=== PATIENT | female | born 1950 | race Caucasian/White ===

== ENCOUNTER 2024-03-20 12:25 | Emergency (ER) | payer MEDICARE ==
[2024-03-20] MEDS ORDERED: Ibuprofen 200 MG TAB ONE (13:37)
[2024-03-20] MEDS ORDERED: HYDROcodone/Acetaminophen 5/325 mg Tablet ONE (13:37)
== END 2024-03-20 19:27 ==
LOC: ERS 12:25 → EDBD 12:25 → ERS 19:27
DX: R10.2 Pelvic and perineal pain (principal); M79.605 Pain in left leg; I10 Essential (primary) hypertension; E11.40 Type 2 diabetes mellitus with diabetic neuropathy, unspecified; Z55.6 Problems related to health literacy; W18.30XA Fall on same level, unspecified, initial encounter
CPT/HCPCS: 72192